=== PATIENT | male | born 1990 | race Hispanic/Latino ===

== ENCOUNTER 2018-12-10 12:52 | Emergency (ER) | payer SELFPAY ==
[2018-12-10] MEDS ORDERED: TETRACAINE HCL 0.5% 4 ML OPHTH SOLN ONE (13:08)
[2018-12-10] MEDS ORDERED: FLUORESCEIN SODIUM 1 STRIP STRIP ONE (13:09)
[2018-12-10] MEDS ORDERED: ERYTHROMYCIN BASE 0.5% OPHTH OINT 1 GM TUBE ONE (13:35)
== END 2018-12-10 13:53 | disposition home or self-care (01) ==
LOC: EDH 12:52
DX: L03.115 Cellulitis of right lower limb (principal); E11.9 Type 2 diabetes mellitus without complications; E78.5 Hyperlipidemia, unspecified; I10 Essential (primary) hypertension